=== PATIENT | female | born 1940 | race Caucasian/White ===

== ENCOUNTER → 2020-01-20 14:25 | Outpatient (CLI) | payer MEDICARE, OTHER, SELFPAY ==
--- NOTE | 2020-01-20 | ECG_ITS ---
APPROVED REPORT Exam: Resting ECG HR:81 bpm ECG Measurements Heart Rate 81 AXES OK 170 P 78 QRSd 80 QRS 76 QT 392 T 72 QTc 455 <Conclusion> Normal sinus rhythm Normal ECG Electronically signed by : Nader Jack, 01/21/2020 15:50:22
== END ==
PROVIDERS: PCP Family Medicine; Visit Provider Family Medicine
DX: Z01.818 Encounter for other preprocedural examination (principal)
CPT/HCPCS: 93005

== ENCOUNTER 2021-01-07 20:13 | Emergency (ER) | payer MEDICARE, OTHER, SELFPAY ==
--- NOTE | 2021-01-07 20:19 | ECG_ITS ---
APPROVED REPORT Exam: Resting ECG HR:72 bpm ECG Measurements Heart Rate 72 AXES IN 162 P 63 QRSd 76 QRS -6 QT 438 T 70 QTc 479 Conclusion Normal sinus rhythm Minimal voltage criteria for LVH, may be normal variant Borderline ECG Electronically signed by : Nader Jack, 01/08/2021 09:06:37
[2021-01-07 20:20] VITALS: BP 107/42; PULSE 78; RESP 17; TEMP 36.6; O2SAT 93; BMI 27.2
--- NOTE | 2021-01-07 20:28 | XR_ITS ---
PROCEDURE INFORMATION: Exam: XR Chest Exam date and time: 01/07/2021 8:28 PM Age: 80 years old Clinical indication: Other: Post intubation post code 500; Additional info: Check et tube TECHNIQUE: Imaging protocol: XR of the chest. Views: 1 view. COMPARISON: CR CXR1 CHEST-PORTABLE 10/22/2015 5:37 AM FINDINGS: Tubes, catheters and devices: Tip of ET tube is at the level of the clavicles. Tip of nasogastric tube is beyond the scope of the exam. Lungs: Medial right upper lung atelectasis with scarring. No focal consolidations. Pleural spaces: Unremarkable. No pleural effusion. No pneumothorax. Heart/Mediastinum: Unremarkable. No cardiomegaly. Vasculature: Aorta contains calcified plaque. Bones/joints: Diffuse osteopenia with degenerative changes of the acromioclavicular joints. IMPRESSION: 1. Properly positioned ET tube. 2. No acute cardiopulmonary findings.
[2021-01-07 20:30] VITALS: BP 116/60; PULSE 75; RESP 16; O2SAT 92
[2021-01-07 20:45] VITALS: BP 110/71; PULSE 79; RESP 18; O2SAT 99
[2021-01-07 20:49] LABS: Basophils % 0.5 % (0.1-2.0); Eosinophils # 0.2 K/mm3 (0.0-0.4); Eosinophils % 2.1 % (0.1-12.0); Hematocrit 34.8 % (37.0-47.0); Hemoglobin 11.4 g/dL (12.2-16.2); Lymphocytes # 2.4 K/mm3 (0.7-4.5); Lymphocytes % 30.5 % (10-50); Mean Corpuscular HGB Conc 32.7 g/dL (31.8-35.4); Mean Corpuscular Hemoglobin 29.8 pg (27.0-31.2); Mean Corpuscular Volume 91.1 fl (81-99); Monocytes # 0.4 K/mm3 (0.1-1.0); Neutrophils % 61.9 % (37.0-80.0); Platelet Count 204 K/mm3 (142-424); Red Blood Count 3.82 M/mm3 (4.20-5.40); Red Cell Distribution Width 14.6 % (11.5-17.5)
[2021-01-07 20:50] LABS: Chloride 104 mmol/L (98-107); Potassium 3.8 mmoL/L (3.5-5.1); Sodium 138 mmol/L (136-145)
[2021-01-07 20:52] LABS: Blood Urea Nitrogen 16 mg/dl (7-17); Creatinine Clearance Estimated 52 mL/min (50-200); Estimated Glomerular Filt Rate 53 ml/min (>60); GFR (African American) 64 ML/MIN (>60)
[2021-01-07 20:53] LABS: Alanine Aminotransferase 13 U/L (12-78); Alkaline Phosphatase 85 U/L (38-126); Anion Gap 10.8 mEq/L (5-15); Aspartate Amino Transferase 26 U/L (14-36); Bilirubin,Direct 0.3 mg/dl (0.0-0.4); Bilirubin,Indirect 0.1 mg/dL (0.0-0.9); Bilirubin,Total 0.4 mg/dl (0.2-1.3); Bilirubin,Unconjugated 0.1 mg/dL (0.0-1.1); Calcium 9.3 mg/dl (8.4-10.2); Carbon Dioxide 27 mmol/L (22.0-30.0); Glucose 172 mg/dl (74-100); Total Protein,Serum 6.8 g/dl (6.3-8.2)
--- NOTE | 2021-01-07 20:55 | PC.NURSE ---
called to patient's room per family. patient non responsive with decorticate posturing present. patient gcs 3. oxygen applied, suction utilized for yellow vomitus. event lasted approximately 1 minute. pt responded to painful stimuli at this point. moved patient to room 3t for continued monitoring. vs as recorded.
[2021-01-07 20:58] LABS: C-Reactive Protein 4.4 mg/L (0-4)
--- NOTE | 2021-01-07 20:59 | PC.NURSE ---
pt awake alert, responsive to md painful stimuli. questioned her where she was and her name. she responded yolanda taylor and ...[facility] in [place] . discussed if she knew what had happened and she said i think i passed out . denies pain. denies soa. independent breathing. oxygen saturation wnl.
--- NOTE | 2021-01-07 21:01 | PC.NURSE ---
condition changed while this nurse was out talking with family
--- NOTE | 2021-01-07 21:01 | PC.NURSE ---
discussed situation with daughter in law. discussed history. states patient has no real history other than taking two bp meds a day and that's pretty much it. no history of seizures noted. daughter in law to notify pt's son. she stated that it appeared that when she was at home she was having a seizure . reiterated no previous history of seizures.
[2021-01-07 21:02] LABS: NT Pro Brain Natriuretic Pep. 1080 pg/mL (0-450)
--- NOTE | 2021-01-07 21:02 | PC.NURSE ---
pt placed on monitor, non rebreather and zoll monitor. ventilation per bvm at this time. md at bedside preparing to intubate.
[2021-01-07 21:10] LABS: Procalcitonin 0.078 ng/mL (0.0-2.0)
--- NOTE | 2021-01-07 21:11 | ECG_ITS ---
APPROVED REPORT Exam: Resting ECG HR:118 bpm ECG Measurements Heart Rate 118 AXES ME 134 P 81 QRSd 74 QRS 38 QT 344 T 75 QTc 482 Conclusion Sinus tachycardia with fusion complexes Otherwise normal ECG Electronically signed by : Nader Jack, 01/08/2021 09:06:34
[2021-01-07 21:13] LABS: T4 (Thyroxine) 8.7 ug/dl (5.53-11.0)
[2021-01-07 21:15] VITALS: BP 98/53; PULSE 0; RESP 14; O2SAT 100
--- NOTE | 2021-01-07 21:15 | PC.NURSE ---
rsi utilized. pt intubated with 7.5 et tub, set 25 at the lip. cuff inflated to 10. color change per capnography. continued ventilation per bvm @ 100% oxygen. bilateral chest rise and fall. breath sounds audible per auscultation. rt at bedside and secured et tube.
[2021-01-07 21:17] LABS: Erythrocyte Sedimentation Rate 21 mm/hr (0-30)
[2021-01-07 21:19] LABS: ABG Base Excess -8.4 mmol/L (-2.4-2.3); ABG HCO3 17.2 mmhg (22.0-26.0); ABG Oxygen Saturation 100 % (90-100); ABG PCO2 31.8 mmhg (35.0-45.0); ABG PH 7.35 mmol/L (7.35-7.45); ABG PO2 270.1 mmhg (80-100); ABG TCO2 18.1 mmhg (23-27)
--- NOTE | 2021-01-07 21:23 | PC.NURSE ---
pt without pulse via carotid and femoral check. epi 1mg given.
--- NOTE | 2021-01-07 21:24 | PC.NURSE ---
atropine 1mg given per acls protocols
--- NOTE | 2021-01-07 21:26 | PC.NURSE ---
cpr continues. carotid pulse present. confirmed per doppler. ngtube placed left lateral nare, 65cm.
[2021-01-07 21:27] LABS: Thyroid Stimulating Hormone 3.71 uIU/mL (0.465-4.68)
[2021-01-07 21:29] LABS: POC Glucose,Bedside 153 (70-110)
--- NOTE | 2021-01-07 21:29 | PC.NURSE ---
pea noted, epi 1mg
--- NOTE | 2021-01-07 21:30 | PC.NURSE ---
dopamine initiated at 10mcg. bp 98/83. remains without palpable pulse. PEA. cpr re-initiated after doppler confirmed no pulse.
--- NOTE | 2021-01-07 21:33 | PC.NURSE ---
iv 20 g to left hand initiated. epi 1mg given. cpr continued.
--- NOTE | 2021-01-07 21:34 | PC.NURSE ---
pulse check, palpable . atropine 1mg. bp 86/51.
--- NOTE | 2021-01-07 21:37 | PC.NURSE ---
PEA, cpr started, epi 1mg given
--- NOTE | 2021-01-07 21:39 | PC.NURSE ---
unable to obtain pulse. cpr continued.
--- NOTE | 2021-01-07 21:41 | PC.NURSE ---
epi given, cpr continued.
--- NOTE | 2021-01-07 21:43 | PC.NURSE ---
pulse check, no v/s, cpr continued. increased dopamine to 20 @ this time.
--- NOTE | 2021-01-07 21:45 | PC.NURSE ---
pulse check, cpr continued. unable to view cardiac activity per md using ultrasound visual nor doppler audibly.
--- NOTE | 2021-01-07 21:48 | PC.NURSE ---
epi 1mg given. continued cpr. ventilation continues throughout acls procedure via bvm and rt at bedside. md remains at bedside. discussing futility with daughter in law who is outside of room at this time. she is getting the son.
--- NOTE | 2021-01-07 21:51 | PC.NURSE ---
cpr paused for pulse check. unable to obtain palpable or audible carotid, femoral or apical pulse. rhythm remains pea.
--- NOTE | 2021-01-07 21:52 | PC.NURSE ---
asystole at this time. cpr continued.
--- NOTE | 2021-01-07 21:53 | PC.NURSE ---
time of at this time.
--- NOTE | 2021-01-07 21:58 | PC.NURSE ---
screaming and yelling coming from lobby while staff attempting to provide post mortem care. dispatch notified of threatening individual who was aggressive and yelling at the warehouse stock clerk. pt's son was distraught with situation and actively acting in a threatening manner towards staff. jared josue responded to scene.
--- NOTE | 2021-01-07 22:00 | PC.NURSE ---
son at bedside. told warehouse stocker he didn't care that pd was called. advancing toward doctor in aggressive manner. staff remain in room at bedside. pt stomped outside after yelling and accusing staff of killing my mother .
--- NOTE | 2021-01-07 22:15 | PC.NURSE ---
called harish argueta @ this time
[2021-01-07 22:18] LABS: Allen's Test Patient Unable; Oxygen 100 %; Source Left Femoral
--- NOTE | 2021-01-07 22:18 | PC.NURSE ---
call placed to [facility]. spoke with [facility]. ruled out d/t longevity. [id number]
--- NOTE | 2021-01-07 22:25 | [facility].EDSYNC ---
ED Disposition Clinical Impression: Cardiac arrest Disposition: Condition on Discharge: Critical Instructions: DI for Syncope in Adults (Fainting), DI for Syncope in Children (Fainting) Referrals: Rich Coppola MD [Primary Care Provider] - - Critical Care Critical Care Time: Yes Attestation: On 01/07/21, the high probability of a clinically significant, sudden or life threatening deterioration of the following system(s) required my full and direct attention, intervention and personal management. The time I documented below is in addition to time spent performing reported procedures but includes the following listed in this critical care notation. Total Critical Care Time: 30 Vital system(s) involved:: Circulatory Failure, Respiratory Failure My critical care processes included: Assessment & monitoring of V/S, Initial and Re-exams, Data Review/Interpretation, Coordinating Care, Medication Orders and management, Documentation Probable Cause of : Cardiac arrest Medical Decision Making - Medical Records Medical records reviewed: Yes: I reviewed the patient's medical records. - Marco Inquiry Pt receiving controlled substance: No Vital Signs: 01/07/21 20:20 01/07/21 20:45 01/07/21 23:45 Temperature 97.9 F 98.2 F Temperature Source Oral Rectal Pulse Rate 79 0 L Pulse Rate [Right Brachial] 78 Respiratory Rate 17 18 0 L Blood Pressure 110/71 0/0 L Blood Pressure [Right Arm] 107/42 L Blood Pressure Mean [Right Arm] 63 Blood Pressure Source Automatic Cuff Automatic Cuff Blood Pressure Source [Right Arm] Automatic Cuff Blood Pressure Position Sitting Supine Blood Pressure Position [Right Arm] Sitting 02 Sat by Pulse Oximetry 93 L 99 Oxygen Delivery Method Room Air Room Air Ambu-Bag Oxygen Flow Rate (LPM) 15 - Lab Data Lab results reviewed: Yes: I reviewed the patient's lab results. Lab Results 01/07/21 20:30: WBC 8.0, RBC 3.82 L, Hgb 11.4 L, Hct 34.8 L, MCV 91.1, MCH 29.8, MCHC 32.7, RDW 14.6, Plt Count 204, MPV 8.0, Neut % (Auto) 61.9, Lymph % (Auto) 30.5, [place] % (Auto) 5.0, Eos % (Auto) 2.1, Baso % (Auto) 0.5, Neut # (Auto) 5.0, Lymph # (Auto) 2.4, [place] # (Auto) 0.4, Eos # (Auto) 0.2, Baso # (Auto) 0.0 01/07/21 20:30: Sodium 138, Potassium 3.8, Chloride 104, Carbon Dioxide 27, Anion Gap 10.8, BUN 16, Creatinine 1.00, Estimated Creat Clear 52, Estimated GFR 53 L, Est GFR ( Amer) 64, Glucose 172 H, Calcium 9.3, Total Bilirubin 0.4, Direct Bilirubin 0.3, Conjugated Bilirubin 0.0, Indirect Bilirubin 0.1, Unconjugated Bilirubin 0.1, AST 26, ALT 13, Alkaline Phosphatase 85, C-Reactive Protein 4.4 H, Total Protein 6.8, Albumin 4.0, TSH 3.71, Thyroxine (T4) 8.7 01/07/21 20:30: ESR 21 01/07/21 20:30: NT-Pro-B Natriuret Pep 1080 H, Procalcitonin 0.078 01/07/21 20:30: Troponin I < 0.01 01/07/21 21:12: Specimen Source Left femoral, O2 % 100, ABG pH 7.35, ABG pCO2 31.8 L, ABG pO2 270.1 H, ABG HCO3 17.2 L, ABG Total CO2 18.1 L, ABG O2 Saturation 100, ABG Base Excess -8.4 L, Jonathan Test Patient unable 01/07/21 21:22: POC Glucose 153 H Result diagrams: 01/07/21 20:30 01/07/21 20:30 Orders (Tests/Meds): ED MEDICATIONS Generic Name Dose Route Start Last Admin Trade Name Freq PRN Reason Stop Dose Admin Epinephrine HCl 1 mg 01/07/21 21:23 01/07/21 21:48 Epinephrine 0.1 Mg/Ml 10ml Syringe (Crash Cart) IV 02/06/21 21:22 1 mg NEEDED PRN Administration ACLS Sodium Chloride 1,000 mls @ 999 mls/hr 01/07/21 20:45 01/07/21 20:41 Sod Chlor 0.9% 1000ml Bag IV 01/07/21 21:45 999 mls/hr .Q1H1M GIORGI Administration Dopamine HCl/Dextrose 250 mls @ 28.746 mls/hr 01/07/21 21:30 01/07/21 23:28 Dopamine 400mg/250ml D5w IV 02/06/21 21:29 28.746 mls/hr .Q8H42M GIORGI Administration Protocol 10 MCG/KG/MIN Sodium Chloride 8 ml 01/07/21 20:36 Sodium Chloride 0.9% 10ml Vial IV 02/06/21 20:35 NEEDED PRN dilute pepcid Discontinued Medications
[2021-01-07 22:31] VITALS: BP 86/51; BP 98/83
[2021-01-07 23:45] VITALS: BP 0/0; PULSE 0; RESP 0; TEMP 36.8; O2SAT 0
[2021-01-07 23:56] LABS: Troponin I < 0.01 ng/ml (0.00-0.034)
== END 2021-01-08 00:20 | disposition expired ==
PROVIDERS: Emergency Provider Emergency Medicine; PCP Family Medicine
DX: I46.9 Cardiac arrest, cause unspecified (principal); W18.11XA Fall from or off toilet without subsequent striking against object, initial encounter; Y92.012 Bathroom of single-family (private) house as the place of occurrence of the external cause; M54.5 Low back pain; R73.9 Hyperglycemia, unspecified
CPT/HCPCS: 31500; 71045; 80048; 80076; 82803; 82962; 83880; 84145; 84436; 84443; 84484; 85025; 85651; 86140; 92950; 93005; 96365; 96367; 96375; 96376; 99291; J0330; J2405